=== PATIENT | female | born 1970 | race Caucasian/White ===

== ENCOUNTER 2017-06-09 11:44 | Day surgery (SDC) | payer BC ==
[2017-06-08 16:26] VITALS: BMI 45.9
[2017-06-09] MEDS ORDERED: PROPOFOL 20 ML ONE (11:56)
[2017-06-09 12:54] VITALS: TEMP 99
[2017-06-09 14:55] VITALS: BP 122/71; PULSE 80
--- NOTE | 2017-06-14 17:50 | PATH ---
Surgical Pathology Report Patient Name: IDALIA [facility]. Rec. #: [id number] /Age/Gender: 1970 (Age: 47) / F Account: [id number] Location: [facility]-ENDOSCOPY Taken: 06/09/2017 Received: 06/09/2017 Reported: 06/14/2017 Physicians: Korina Tate M.D. Specimen(s) Received A: BX SECOND PORTION DUODENUM B: BX ANTRUM C: BX GE JUNCTION Clinical History PUD Rule out celiac disease, gastritis Final Diagnosis A. SECOND PORTION DUODENUM, BIOPSY: DUODENAL MUCOSA WITH NO PATHOLOGIC FINDINGS. Note: Features suggestive of celiac disease are not identified in this biopsy. B. ANTRUM, BIOPSY: MILD CHRONIC GASTRITIS. IMMUNOSTAIN IS NEGATIVE FOR H PYLORI ORGANISMS. C. GE JUNCTION, BIOPSY: GASTRIC CARDIA-TYPE MUCOSA WITH MINIMAL CHRONIC INFLAMMATION. NO INTESTINAL METAPLASIA IS IDENTIFIED. Electronically Signed Mary Hernandez M.D. Gross Description A. Received in formalin, labeled "second portion duodenum" is a driver, irregular portion of soft tissue measuring 0.2 cm. in greatest dimension. The specimen is submitted in toto in one cassette. B. Received in formalin, labeled "antrum" are 2 driver, irregular portions of soft tissue measuring 0.2-0.5 cm. in greatest dimension. The specimens are submitted in toto in one cassette. C. Received in formalin, labeled "GE junction" is a driver, irregular portion of soft tissue measuring 0.4 cm. in greatest dimension. The specimen is submitted in toto in one cassette. [facility]/06/09/2017 [facility]/06/09/2017
== END 2017-06-09 13:45 | disposition home or self-care (01) ==
LOC: FASU-ENDO 11:44
PROVIDERS: ATTEND Internal Medicine Gastroenterology
PROC: 0DB58ZX Excision of Esophagus, Via Natural or Artificial Opening Endoscopic, Diagnostic (ICD-10-PCS; 2017-06-09)
PROC: 0DB98ZX Excision of Duodenum, Via Natural or Artificial Opening Endoscopic, Diagnostic (ICD-10-PCS; principal; 2017-06-09 12:35)
PROC: 0DB68ZX Excision of Stomach, Via Natural or Artificial Opening Endoscopic, Diagnostic (ICD-10-PCS; 2017-06-09 12:35)
DX: K29.50 Unspecified chronic gastritis without bleeding (principal); R10.13 Epigastric pain
CPT/HCPCS: 36415; 84703; 87045; 87046; 87177; 87205; 87209; 87324; 87328; 87329; 87449; 88305-TC; 88342-TC